=== PATIENT | female | born 1990 | race Asian ===

== ENCOUNTER 2020-10-12 22:32 | Emergency (ER) | payer MEDICAID, OTHER ==
[~2020-10-12] VITALS: Ht 157.5 cm; Wt 52.6 kg
--- NOTE | 2020-10-12 22:58 | NUR ---
Pt came in with c/o tootache since July of this year noted to be worsening pain and increase in swelling. A/O x4, no SOB or labored breathing. Denies any GI/ distress.
--- NOTE | 2020-10-12 22:59 | NUR ---
Dr. Pedroza at bedside, MSE in progress.
[2020-10-12 23:23] LABS: *URINE HCG, QUAL NEGATIVE (NEGATIVE)
[2020-10-12] MEDS ORDERED: HYDROCODONE/APAP 5-325MG TABLET ONE (23:41)
[2020-10-12] MEDS ORDERED: HYDROCODONE/APAP 5-325MG TABLET PO ONE (23:45)
[2020-10-13] MEDS ORDERED: HYDR-4209 PO (00:36)
--- NOTE | 2020-10-13 00:43 | NUR ---
Patient discharged to home in stable condition. Written and verbal after care instructions given. Patient verbalizes understanding of instructions. Stressed follow up or return to ER for worsening s/s. Steady gait. Denies any pain/discomfort at this time.
[2020-10-13 00:44] VITALS: BP 113/74
== END 2020-10-13 00:44 | disposition home or self-care (01) ==
LOC: ER 22:34
DX: K08.89 Other specified disorders of teeth and supporting structures (principal); J06.9 Acute upper respiratory infection, unspecified; G40.909 Epilepsy, unspecified, not intractable, without status epilepticus; Z88.6 Allergy status to analgesic agent; Z91.040 Latex allergy status
CPT/HCPCS: 84703; A4663